=== PATIENT | male | born 1945 | race Caucasian/White ===

== ENCOUNTER → 2016-07-26 | Outpatient (CLI) | payer BC ==
[~2016-07-26] MED LIST: CALC600T9 PO; CETI10TA84 PO; CHOL1000 PO; CIPR1TAB11 PO; DOCU-94 PO; FSMD/70 PO; METH1TAB81 PO; MISCCAP80 PO; MULT-506 PO; PHEN-876 PO; TAMS0.4C38 PO; antihistamine
== END | disposition home or self-care (01) ==
LOC: C.PATHSPEC 17:53
PROVIDERS: ATTEND Urology
DX: C61 Malignant neoplasm of prostate (principal)

== ENCOUNTER → 2016-08-16 | Outpatient (CLI) | payer BC ==
--- NOTE | 2016-08-16 14:22 | DIAGNOSTIC IMAGING REPORT ---
BONE SCAN WHOLE BODY CLINICAL HISTORY: Prostate cancer. COMPARISON STUDY: Chest and rib radiographs June 13, 2006. TECHNIQUE: 26.7 mCi of technetium 99m MDP was injected IV at 11:00 AM on August 16, 2016. 3 hours following injection, whole body imaging was performed in the anterior and posterior projections. FINDINGS: Expected soft tissue and renal activity is present. 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 Uptake within the shoulders is degenerative. Mild uptake within several right sided ribs is likely post traumatic when correlating with prior rib radiographs. No suspicious radiotracer uptake is identified. Mild uptake within the spine is likely degenerative. Mild asymmetric radiotracer uptake along the left sacroiliac joint is noted. IMPRESSION: 1. No convincing evidence for skeletal metastatic disease. 2. Mild focal uptake with right-sided ribs which is likely post traumatic. 3. Moderate asymmetric radiotracer uptake along the left sacroiliac joint. While indeterminate, a neoplastic etiology is considered unlikely. Electronically signed by: Moses Martinez M.D. 08/16/2016 2:21 PM Dictated Date/Time: 08/16/2016 2:17 PM
== END | disposition home or self-care (01) ==
LOC: C.NUCL 10:41
PROVIDERS: ATTEND Urology
DX: C61 Malignant neoplasm of prostate (principal)

== ENCOUNTER → 2016-10-19 | Day surgery (SDC) | payer BC ==
[2016-10-06 09:29] VITALS: BMI 23.0
--- NOTE | 2016-10-06 09:58 | PAT Medication Instructions ---
Service Date Oct 06, 2016. Current Home Medication List Alendronate/Cholecalciferol (Fosamax+D 70MG/2800 Iu), 1 TABLET PO WK Calcium Carbonate-Vitamin D (Calcium + D), 1 TAB PO BID Cetirizine (Zyrtec), 10 MG PO QAM Ciprofloxacin Tab (Cipro), 500 MG PO BID PRN for D Docusate Sodium (Colace), 1 CAP PO BID PRN for PRN Methylprednisolone (Medrol), 4 MG PO UD Multivitamin (Multivitamin), 1 TAB PO QAM Phenazopyridine HCl (Pyridium), 200 MG PO TID PRN for PRN Tamsulosin Hcl (Flomax), 1 CAP PO HS Medication Instructions For Your Scheduled Surgery Alendronate/Cholecalciferol (Fosamax+D 70MG/2800 Iu), 1 TABLET PO WK (continue as usual on Sundays) Ciprofloxacin Tab (Cipro), 500 MG PO BID (per surgeon instructions) Methylprednisolone (Medrol), 4 MG PO UD (per surgeon instructions) - Hold the following medications the morning of surgery: Multivitamin (Multivitamin), 1 TAB PO QAM Phenazopyridine HCl (Pyridium), 200 MG PO TID PRN for PRN Docusate Sodium (Colace), 1 CAP PO BID PRN for PRN Cetirizine (Zyrtec), 10 MG PO QAM Calcium Carbonate-Vitamin D (Calcium + D), 1 TAB PO BID - Take the following medications as scheduled the night before surgery: Tamsulosin Hcl (Flomax), 1 CAP PO HS Phenazopyridine HCl (Pyridium), 200 MG PO TID PRN for PRN Docusate Sodium (Colace), 1 CAP PO BID PRN for PRN Calcium Carbonate-Vitamin D (Calcium + D), 1 TAB PO BID If you have any questions please call us at [phone] or [phone] ( Radha) or [phone]
--- NOTE | 2016-10-06 10:46 | DIAGNOSTIC IMAGING REPORT ---
CHEST PREADMISSION(PA/LAT) CLINICAL HISTORY: Preoperative evaluation. Prostate cancer. COMPARISON STUDY: Chest radiograph June 13, 2016. FINDINGS: There are old right rib fractures. Lung volumes are normal. There is no pneumothorax or pleural effusion. There is no consolidation to suggest pneumonia. Cardiomediastinal silhouette is normal. IMPRESSION: No acute cardiopulmonary findings. Electronically signed by: Moses Martinez M.D. 10/06/2016 10:45 AM Dictated Date/Time: 10/06/2016 10:44 AM
[2016-10-06 11:06] LABS: BASO % 0.7 %; BASO ABS # 0.04 K/uL (0-0.2); COMPLETE YES; HEMATOCRIT 45.7 % (42-52); IG% 0.3 %; LYMPH % 29.2 %; MEAN CELL VOLUME 89.8 fL (80-100); MEAN CORPUSCULAR HEMOGLOBIN 31.8 pg (25-34); MEAN CORPUSCULAR HGB CONC 35.4 g/dl (32-36); MEAN PLATELET VOLUME 9.3 fL (7.4-10.4); MONO % 8.2 %; NEUT % 55.6 %; PLATELET COUNT 236 K/uL (130-400); RED BLOOD COUNT 5.09 M/uL (4.7-6.1); WHITE BLOOD COUNT 5.82 K/uL (4.8-10.8)
[2016-10-06 11:13] LABS: BUN/CREATININE RATIO 9.2 (10-20); CALCIUM 9.1 mg/dl (8.5-10.1); CREATININE 0.71 mg/dl (0.60-1.40); POTASSIUM 4.7 mmol/L (3.5-5.1)
[2016-10-06 11:19] LABS: URINE APPEARANCE CLEAR (CLEAR); URINE BILIRUBIN NEG (NEG); URINE COLOR YELLOW; URINE NITRITE NEG (NEG); URINE SPECIFIC GRAVITY 1.007 (1.000-1.030); UROBILINOGEN NEG (NEG)
[2016-10-06 11:29] LABS: MANUAL MICROSCOPIC REQUIRED? NO; REVIEW REQ? NO
[~2016-10-19] VITALS: Ht 170.2 cm; Wt 66.6 kg
[~2016-10-19] MED LIST changes: +ATROPINE SULFATE 0.1 MG/ML 5ML SYR IV PRN; +BACITRACIN OINT 15 GM TUBE ONE; +CIPROFLOXACIN / D5W 400 MG IV SCH; +CONRAY 60% 50 ML VIAL ONE; +DEXAMETHASONE SOD INJ 4 MG/ML VIAL ONE; +EpHEDrine SULFATE 50MG/5ML SYR ONE; +EpHEDrine SULFATE INJ 50 MG/ML AMP IV PRN; +FENTANYL CITRATE INJ 50 MCG/1 ML 2 ML VIAL IV PRN; +FENTANYL CITRATE INJ 50 MCG/1 ML 2 ML VIAL ONE; +GENTAMICIN INJ 120 MG in DEXTROSE 5% 100ML 100 ML IV SCH; +GLYCOPYRROLATE INJ 0.2 MG/ML VIAL ONE; +LACTATED RINGER'S 1000ML 1,000 ML IV SCH; +LIDOCAINE HCL 2% 2 ML VIAL (20MG/ML) ONE; +MIDAZOLAM HCL 1 MG/ML 2ML VIAL ONE; +NEOMYC/POLYMYX/BACITR/HC OP OI 3.5 GM TUBE ONE; +NEOMYCIN/POLYMYX/BACITR OINT 15 GM TUBE ONE; +ONDANSETRON INJ 2 MG/ML 2 ML VIAL IV PRN; +ONDANSETRON INJ 2 MG/ML 2 ML VIAL ONE; +OXYCODONE/ACETAMINOPHEN 5-325 TAB PO PRN; +PHENAZOPYRIDINE HCL 100 MG TAB PO PRN; +PHENYLEPHRINE 100MCG/ML 5ML SYR ONE; +PHENYLEPHRINE HCL INJ 10 MG/ML VIAL ONE; +PROMETHAZINE HCL INJ 6.25 MG in SODIUM CHLORIDE 0.9% 50ML 50 ML IV PRN; +PROPOFOL IV EMULSION 10 MG/ML 20 ML VIAL IV ONE; -antihistamine
[2016-10-19 05:44] VITALS: BP 155/74; PULSE 112; TEMP 36.8; O2SAT 97; Ht 170.2 cm; Wt 66.6 kg
--- NOTE | 2016-10-19 07:14 | History & Physical Bridge Note ---
H&P Re-Evaluation Bridge Note: I have examined the patient, reviewed the History & Physical and in the interval since the performance of the History & Physical I have noted the following changes of clinical significance: No changes noted
--- NOTE | 2016-10-19 10:28 | Discharge Instructions ---
Discharge Instructions Date of Service Oct 19, 2016. Admission Reason for Admission: Prostate Cancer Discharge Discharge Diagnosis / Problem: Prostate cancer s/p brachyRx and SpaceOAR Discharge Goals Goal(s): Improve disease control, Therapeutic intervention Activity Recommendations Activity Limitations: per Instructions/Follow-up section Lifting Limitations: no more than 25 pounds, gradually increase as tolerated ( over 1 week) Exercise/Sports Limitations: rest today, gradually increase as tolerated (over 1 week) May Resume Sexual Activity: after follow-up appointment Shower/Bathe: tomorrow Driving or Machine Use: resume 1 day after discharge . Discharge Diet Recommended Diet: Regular Diet (good fluid intake) Procedures Procedures Performed: BrachyRx of prostate and SpaceOAR Pending Studies Studies pending at discharge: no Medical Emergencies . Who to Call and When: Medical Emergencies: If at any time you feel your situation is an emergency, please call 911 immediately. . Non-Emergent Contact Non-Emergency issues call your: Urologist Call Non-Emergent contact if: you have a fever, temperature is above 101, your pain is not controlled, your pain is worsening, your pain is unusual for you, your pain is concerning you, wound has increased drainage, wound has increased redness, wound has increased pain, you have any medication questions . . "Provider Documentation" section prepared by Xavier Salinas. VTE Core Measure Inpt VTE Proph given/why not?: SCD's
--- NOTE | 2016-10-19 10:30 | [facility] Post Operative Brief Note ---
Immediate Operative Summary Operative Date Oct 19, 2016. Pre-Operative Diagnosis Prostate cancer Post-Operative Diagnosis Same as preop. Procedure(s) Performed BrachyRx of prostate and SpaceOAR Surgeon Dr. Xavier aSlinas, Dr. Chau Lopez Meter Installer Surgeon(s) Claude Allison Estimated Blood Loss 10 ml Findings 28 cc prostate, 49 seeds placed via 18 needles Specimens None. Drains 18 fr cornejo, 10 cc H2O Anesthesia GALMA Complication(s) None Disposition Recovery Room / PACU
--- NOTE | 2016-10-19 10:32 | DIAGNOSTIC IMAGING REPORT ---
INTRAOPERATIVE RADIOGRAPHS CLINICAL HISTORY: Brachytherapy of the prostate gland. Fluoroscopy time: 7 seconds. FINDINGS: 2 spot fluoroscopic views of the pelvis from a prostatic brachytherapy procedure are presented. A Mar catheter is in place and the bladder is filled with contrast. Numerous brachytherapy seeds project over the prostate gland. IMPRESSION: Intraoperative images from brachytherapy of the prostate gland as above. Electronically signed by: Hero Peterson M.D. 10/19/2016 10:30 AM Dictated Date/Time: 10/19/2016 10:29 AM
--- NOTE | 2016-10-19 10:59 | OPERATIVE REPORT ---
DATE OF OPERATION: 10/19/2016 PREOPERATIVE DIAGNOSIS: [place] 3+4 prostate cancer. POSTOPERATIVE DIAGNOSIS: Same. PROCEDURE: Brachytherapy of the prostate with volumetric analysis and injection of perirectal SpaceOAR. SURGEON: Dr. Xavier Salinas and Dr. Chau Lopez. SIGN INSTALLER: Keon Allison. ANESTHESIA: General anesthesia with laryngeal mask. COMPLICATIONS: None. ESTIMATED BLOOD LOSS: Minimal. DRAINS LEFT IN PLACE: Include an 18 Persian Mar catheter to gravity drainage with 10 mL of sterile water in the balloon. SPECIMENS SENT TO PATHOLOGY: None. ESTIMATED BLOOD LOSS: 10 mL. FINDINGS: 28 mL gland with 49 seeds implanted via 18 needles, good location of SpaceOAR noted on intraoperative ultrasound and good seed location on ultrasound and fluoro. BRIEF HISTORY: Mr. Chavez is a pleasant 71-year-old male who has undergone an office biopsy of his prostate demonstrating adenocarcinoma, [place] 3+4. After discussion of risks and benefits of various forms of intervention, he has decided upon brachytherapy of the prostate with external beam boost to manage his disease. No androgen deprivation has been provided to the patient. Please see H\T\P for further details. He is being brought into the operating room today for surgery as noted. Bone scan has been negative. Preoperative PSA is 5.27, clinical stage T1c. OPERATION AND FINDINGS: PROCEDURE: The patient was properly identified and brought into the operative suite. After identification and appropriate consent on the chart, general anesthesia with laryngeal mask was initiated and the patient was prepped and draped in standard fashion for this procedure. time motion analyst-out procedure was followed. Transrectal ultrasound probe was placed after placement of a Mar catheter with contrast in the bladder and aerated gel within the catheter itself. Prostate was imaged and captured to allow for radiation oncology planning. Peripheral seeds were placed 13 in number and after appropriate calculations peripheral seeds were implanted. Five internal needles were required and placed under hematology/oncology guidance with excellent needle and seed placement throughout the case. A Mar catheter required changing at the end of the procedure due to bursting of the balloon with one of the needle passes. Seeds were visualized entering the prostate under direct visualization on ultrasound. After completion of implantation excellent seed position was appreciated on fluoroscopic imaging. The SpaceOAR gel was injected after hydrodissection of the plane between the prostate and the rectum with a good spread of gel in the plane between the two increasing the distance between the radioactive seed implant and the prostate gland and the rectum. The patient tolerated the procedure well without difficulties or complaints. Ultrasound probe was removed and perineal pressure was held using an orthopedic hammer for distance from the radioactive seeds. Bacitracin ointment was placed and a Mar catheter was placed to gravity drainage. Anesthesia was reversed. The patient was transferred to recovery room in stable condition. FOLLOW-UP CARE: The patient will be discharged to the radiation oncology service for further imaging, trial of void and discharge home. He has his prescriptions for which were provided preoperatively for his perioperative period. Outpatient appointment is confirmed. The patient is instructed to contact our service should he note any fevers, chills, nausea, vomiting or other significant difficulties in the postoperative period. I attest to the content of the Intraoperative Record and any orders documented therein. Any exceptio ns are noted below.
[2016-10-19 11:10] VITALS: BP 123/67; PULSE 86; TEMP 36.5; O2SAT 92
--- NOTE | 2016-10-19 11:15 | Anesthesiology Progress Note ---
Anesthesia Post Op Note Date & Time Oct 19, 2016 at 11:14 Vital Signs Pain Intensity: 1 Vital Signs Past 12 Hours Date Time Temp Pulse Resp B/P Pulse Ox O2 Delivery O2 Flow Rate FiO2 10/19/16 10:55 36.5 89 16 128/75 94 Room Air 10/19/16 10:45 90 16 127/75 97 Room Air 10/19/16 10:35 93 16 133/76 99 Mask 10 10/19/16 10:25 36.6 99 16 115/84 99 Mask 10 10/19/16 05:44 36.8 112 20 155/74 97 Room Air Notes Mental Status: alert / awake / arousable, participated in evaluation Pt Amnestic to Procedure: Yes Nausea / Vomiting: adequately controlled Pain: adequately controlled Airway Patency, RR, SpO2: stable & adequate BP & HR: stable & adequate Hydration State: stable & adequate Anesthetic Complications: no major complications apparent
[2016-10-19 11:40] VITALS: BP 100/53; PULSE 86; TEMP 36.5; O2SAT 95
[2016-10-19 11:55] VITALS: BP 114/64; PULSE 84; TEMP 36.4; O2SAT 94
== END | disposition home or self-care (01) ==
LOC: C.ACU 05:12
PROVIDERS: ATTEND Urology
DX: C61 Malignant neoplasm of prostate (principal); Z79.899 Other long term (current) drug therapy; Z87.891 Personal history of nicotine dependence

== ENCOUNTER → 2016-11-15 | Outpatient (CLI) | payer BC ==
[~2016-11-15] MED LIST changes: -ATROPINE SULFATE 0.1 MG/ML 5ML SYR IV PRN; -BACITRACIN OINT 15 GM TUBE ONE; -CIPROFLOXACIN / D5W 400 MG IV SCH; -CONRAY 60% 50 ML VIAL ONE; -DEXAMETHASONE SOD INJ 4 MG/ML VIAL ONE; -EpHEDrine SULFATE 50MG/5ML SYR ONE; -EpHEDrine SULFATE INJ 50 MG/ML AMP IV PRN; -FENTANYL CITRATE INJ 50 MCG/1 ML 2 ML VIAL IV PRN; -FENTANYL CITRATE INJ 50 MCG/1 ML 2 ML VIAL ONE; -GENTAMICIN INJ 120 MG in DEXTROSE 5% 100ML 100 ML IV SCH; -GLYCOPYRROLATE INJ 0.2 MG/ML VIAL ONE; -LACTATED RINGER'S 1000ML 1,000 ML IV SCH; -LIDOCAINE HCL 2% 2 ML VIAL (20MG/ML) ONE; -MIDAZOLAM HCL 1 MG/ML 2ML VIAL ONE; -NEOMYC/POLYMYX/BACITR/HC OP OI 3.5 GM TUBE ONE; -NEOMYCIN/POLYMYX/BACITR OINT 15 GM TUBE ONE; -ONDANSETRON INJ 2 MG/ML 2 ML VIAL IV PRN; -ONDANSETRON INJ 2 MG/ML 2 ML VIAL ONE; -OXYCODONE/ACETAMINOPHEN 5-325 TAB PO PRN; -PHENAZOPYRIDINE HCL 100 MG TAB PO PRN; -PHENYLEPHRINE 100MCG/ML 5ML SYR ONE; -PHENYLEPHRINE HCL INJ 10 MG/ML VIAL ONE; -PROMETHAZINE HCL INJ 6.25 MG in SODIUM CHLORIDE 0.9% 50ML 50 ML IV PRN; -PROPOFOL IV EMULSION 10 MG/ML 20 ML VIAL IV ONE
[2016-11-15 13:42] VITALS: BP 128/61; PULSE 100; TEMP 36.8; O2SAT 95
--- NOTE | 2016-11-15 15:59 | Radiation Oncology Follow-Up ---
Radiation Oncology Follow-Up Date of Visit November 15, 2016. Reason For Visit One month post seed implant Radiation Completion Date Brachytherapy and spaceoar Diagnosis (1) Prostate cancer Status: Acute Onset Date: 07/26/2016 Location: both lobes of the prostate Histology Subtype: adenocarcinoma Stage: ll (B biopsy stage) Permanent Comment: Rising PSA, pretreatment PSA 5.270 Status post ultrasound-guided biopsies 07/26/2016 Adenocarcinoma with [place]to 3+3 and 3+4 Prostate volume 32.3 Prostate density 0.163 Status post prostate seed implant 10/19/2016. 49 seeds were placed. Status post placement of Space OAR Last Edited By: Urmila Stevenson on November 15, 2016 15:59 History of Present Illness Mr. Chavez is a 71-year-old male without a family history of prostate cancer. He has been followed to his PCP with prostate-specific antigens. On 09/13/2011 prostate-specific antigen was 2.74. On 10/31/2013 the prostate-specific antigen was 3.38. This value was confirmed on 11/10/2013 at 3.2. Patient was seen by Dr. Xavier Salinas on 11/19/2013. His clinical exam at that time showed a mildly enlarged gland with no nodularity. His next prostate-specific antigen was on 03/24/2016. This was following a digital rectal exam revealing no nodularity but an enlarged gland. The prostate-specific antigen at this time had increased to 5.27. With a jump in prostate-specific antigen he was again seen by Dr. Salinas on 06/05/2016. The patient was started on tamsulosin for urinary symptoms. Digital rectal exam again showed no nodularity. His estimated gland size was 45 g. Because of the rising prostate-specific antigen he discussed biopsy options. He had the patient return on July 26 and noted improved urinary symptoms with the tamsulosin. A prostate biopsy was scheduled and performed. On 07/26/2016 and ultrasound-guided biopsies were performed. A total of 14 biopsies were taken. This included 2 biopsies each from the left and right base , left and right mid, left and right apex and one biopsy from the left and right anterior gland. One of 2 biopsies from the left base revealed adenocarcinoma [place] grade of 3+3 involving 50% of the core biopsy with no perineural invasion seen. One of 2 biopsies from the right base were positive for adenocarcinoma Juan Alberto grade 3+4 involving 7% of the core sample with no perineural invasion seen. 2 of 2 biopsies in the left mid gland revealed adenocarcinoma Juan Alber[place] grade 3+4 involving 50% and 10% of the core samples respectively with no perineural invasion seen. One of 2 biopsies from the left apex were positive for adenocarcinoma [place] grade 3+3 involving 7% of the core sample with no perineural invasion seen. 22 biopsies from the right apex were positive for adenocarcinoma [place] grade 3+3 involving 25% and 17% of the core samples respectively with no perineural invasion seen. The 2 biopsies from the right mid gland and the left and right anterior biopsies were benign. 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 Therefore total of 7 of 14 biopsies were positive area and this included 4 from the left gland and 3 from the right gland. For the biopsies were [place] grade 3+3 and 3 of the biopsies were [place] grade 3+4. Case: [id number]-[id number]. Patient underwent a staging bone scan on 08/16/2016. This showed mild focal uptake of the right-sided ribs likely posttraumatic. There was moderate asymmetric radiotracer uptake along the left SI joint felt to be indeterminate with a neoplastic etiology considered unlikely. Therefore there was no convincing evidence of skeletal metastatic disease. The patient return to discuss these findings with Dr. Salinas on 08/09/2016. He arranged to have the patient return to discuss surgery as a treatment option on 09/19/2016 was kind enough to ask us to see the patient to discuss the radiation treatment options. Patient's final decision for treatment was to have a prostate seed implant followed by external beam radiation therapy. No hormone suppression. The prostate seed implant was performed 10/19/2016. 49 seeds were placed. He also had placement of SpaceOAR. Interim History He is been doing well over this past month. He had some mild discomfort following the procedure. This resolved without difficulty. Today he presented with his weekly AUA sheets. His AUA score on 10/27/2016 was 10. The score on 11/04/2016 was 6. The score on 11/11/2016 was 6. His score on 11/15/2016 was 5. He completed and expanded prostate cancer index composite for clinical practice today. He gave a score of 0 of 12 and urinary incontinence symptoms. He gave a score of 0 of 12 and urinary irritation symptoms. He gave a score 0 of 12 and bowel symptoms. He gave a score of 6 of 12 and sexual symptoms. He gave a score 0 12 in hormonal vitality symptoms. His total was 6 of 60. Allergies Coded Allergies: Influenza Vaccine Live (Verified Allergy, Severe, THROAT SWELLING-2014, ) Penicillins (Verified Allergy, Intermediate, HIVES, 10/19/16) Statins (Verified Adverse Reaction, Unknown, aching shoulders, 10/19/16) Home Medications Scheduled Alendronate/Cholecalciferol (Fosamax+D 70MG/2800 Iu), 1 TABLET PO WK Calcium Carbonate-Vitamin D (Calcium + D), 1 TAB PO BID Cetirizine (Zyrtec), 10 MG PO QAM Multivitamin (Multivitamin), 1 TAB PO QAM Probiotic Product (Probiotic), 1 CAP PO DAILY Tamsulosin Hcl (Flomax), 1 CAP PO HS Scheduled PRN Docusate Sodium (Colace), 1 CAP PO BID PRN for PRN Review of Systems Gastrointestinal: Symptoms: WNL GI Comments: Takes colace PRN;No fiber supplements Oral: Symptoms: No Problems Respiratory: Symptoms: WNL Urinary: Comments: Can delay urge to void briefly without problem;2 voids/night; Skin: Symptoms: No Problems Physical Exam Vital Signs Date Time Temp Pulse Resp B/P Pulse Ox O2 Delivery O2 Flow Rate FiO2 11/15/16 13:42 36.8 100 12 128/61 95 Fatigue: None General Appearance: no apparent distress Eyes: normal inspection, EOMI ENT: normal ENT inspection, hearing grossly normal Neck: no adenopathy Respiratory/Chest: lungs clear, no respiratory distress, no accessory muscle use Cardiovascular: regular rate, rhythm, no gallop, no murmur Abdomen: non tender, soft Extremities: no pedal edema Neurologic/Psychiatric: no motor/sensory deficits, alert, normal mood/affect Skin: warm/dry Laboratory Studies Test 10/06/16 00:00 10/06/16 10:09 Urine Color YELLOW Urine Appearance CLEAR (CLEAR) Urine pH 8.0 (4.5-7.5) Urine Specific [place] 1.007 (1.000-1.030) Urine Protein NEG (NEG) Urine Glucose (UA) NEG (NEG) Urine Ketones NEG (NEG) Urine Occult Blood NEG (NEG) Urine Nitrite NEG (NEG) Urine Bilirubin NEG (NEG) Urine Urobilinogen NEG (NEG) Urine Leukocyte Esterase NEG (NEG) White Blood Count 5.82 K/uL (4.8-10.8) Red Blood Count 5.09 M/uL (4.7-6.1) Hemoglobin 16.2 g/dL (14.0-18.0) Hematocrit 45.7 % (42-52) Mean Corpuscular Volume 89.8 fL (80-100) Mean Corpuscular Hemoglobin 31.8 pg (25-34) Mean Corpuscular Hemoglobin Concent 35.4 g/dl (32-36) Platelet Count 236 K/uL (130-400) Mean Platelet Volume 9.3 fL (7.4-10.4) Neutrophils (%) (Auto) 55.6 % Lymphocytes (%) (Auto) 29.2 % Monocytes (%) (Auto) 8.2 % Eosinophils (%) (Auto) 6.0 % Basophils (%) (Auto) 0.7 % Neutrophils # (Auto) 3.23 K/uL (1.4-6.5) Lymphocytes # (Auto) 1.70 K/uL (1.2-3.4) Monocytes # (Auto) 0.48 K/uL (0.11-0.59) Eosinophils # (Auto) 0.35 K/uL (0-0.5) Basophils # (Auto) 0.04 K/uL (0-0.2) RDW Standard Deviation 41.6 fL (36.4-46.3) RDW Coefficient of Variation 12.7 % (11.5-14.5) Immature Granulocyte % (Auto) 0.3 % Immature Granulocyte # (Auto) 0.02 K/uL (0.00-0.02) Sodium Level 139 mmol/L (136-145) Potassium Level 4.7 mmol/L (3.5-5.1) Chloride Level 104 mmol/L (98-107) Carbon Dioxide Level 31 mmol/L (21-32) Anion Gap 4.0 mmol/L (3-11) Blood Urea Nitrogen 7 mg/dl (7-18) Creatinine 0.71 mg/dl (0.60-1.40) Est Creatinine Clear Calc Drug Dose 91.8 ml/min Estimated GFR () 111.0 Estimated GFR (Non- 95.7 BUN/Creatinine Ratio 9.2 (10-20) Random Glucose 100 mg/dl (70-99) Calcium Level 9.1 mg/dl (8.5-10.1) Assessment & Plan Plan: Patient is also seen and examined by Dr. Lopez today. His AUA sheets were reviewed. We will now plan to schedule for CT simulation and follow-up MRI. His consent was read and signed for the external beam therapy. All questions were answered. He'll begin treatment in approximately 1-1/2-2 weeks. Total Time In Follow-Up I spent 20 minutes speaking to the patient and performing examination. I spent 15 minutes reviewing information in completing this note. Copy To Xavier Salinas MD, Urology; Lorenzo Cuenca M.D.
== END | disposition home or self-care (01) ==
LOC: C.ONC 13:31
PROVIDERS: ATTEND Physician Assistant Medical
DX: Z08 Encounter for follow-up examination after completed treatment for malignant neoplasm (principal); Z92.3 Personal history of irradiation; Z85.46 Personal history of malignant neoplasm of prostate

== ENCOUNTER → 2016-11-23 | Outpatient (CLI) | payer BC ==
[~2016-11-23] MED LIST changes: -CIPR1TAB11 PO; -METH1TAB81 PO; -PHEN-876 PO
--- NOTE | 2016-11-23 08:17 | DIAGNOSTIC IMAGING REPORT ---
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 COMPARISON: None. FINDINGS: There are no radiopaque foreign bodies identified within the orbits. IMPRESSION: No radiopaque foreign bodies identified within the orbits. Electronically signed by: Ian Powell M.D. 11/23/2016 8:15 AM Dictated Date/Time: 11/23/2016 8:15 AM
--- NOTE | 2016-11-23 09:07 | DIAGNOSTIC IMAGING REPORT ---
PELVIS WITHOUT CONTRAST (MRI) CLINICAL HISTORY: Prostate carcinoma. Spaceoar evaluation. COMPARISON STUDY: No previous studies for comparison. FINDINGS: Imaging was performed in sagittal and axial planes. There is no suspicious areas of marrow replacement. There are no pathologically enlarged pelvic lymph nodes. There is mild bladder trabeculation. There is sigmoid diverticulosis. The prostate measures 43 mm in diameter. Multiple T2 hypointense lesions within the prostate are consistent with implant seeds. A hydrogel prostate/rectal spacer is visualized. On the right, at the mid gland level the prostate rectal separation is 1 cm. Centrally the prostate rectal separation is 12 mm. On the left, the prostate rectal separation is 16 mm. Inferiorly, the minimal prostate rectal separation is 5 mm. IMPRESSION: 1. No evidence of pathologic adenopathy 2. No evidence of marrow replacement 3. A hydrogel prostate rectal spacer is visualized. The minimal prostate rectal separation is 5 mm Electronically signed by: Ian Powell M.D. 11/23/2016 9:05 AM Dictated Date/Time: 11/23/2016 8:56 AM
== END | disposition home or self-care (01) ==
PROVIDERS: ATTEND Physician Assistant Medical
DX: C61 Malignant neoplasm of prostate (principal)

== ENCOUNTER → 2017-02-05 | Outpatient (CLI) | payer BC ==
[2017-02-05 13:00] LABS: BLOOD UREA NITROGEN 5 mg/dl (7-18); BUN/CREATININE RATIO 6.4 (10-20); CHOLESTEROL 244 mg/dl (0-200); CREATININE 0.74 mg/dl (0.60-1.40); TRIGLYCERIDES 73 mg/dl (0-150); VERY LOW DENSITY LIPOPROT CALC 15 mg/dl
[2017-02-05 13:02] LABS: CHOLESTEROL/HDL RATIO 3.1; HDL CHOLESTEROL 78 mg/dl; LDL CHOLESTEROL CALCULATED 151 mg/dl
== END | disposition home or self-care (01) ==
LOC: C.LABBFT 10:43
PROVIDERS: ATTEND Urology
DX: R97.20 Elevated prostate specific antigen [PSA] (principal); E78.5 Hyperlipidemia, unspecified

== ENCOUNTER → 2017-02-14 | Outpatient (CLI) | payer BC ==
[2017-02-14 14:51] VITALS: BP 128/63; PULSE 97; TEMP 37.2; O2SAT 94
--- NOTE | 2017-02-14 16:19 | Radiation Oncology Follow-Up ---
Radiation Oncology Follow-Up Date of Visit Feb 14, 2017. Reason For Visit One-month follow-up Radiation Completion Date 10/19/16 prostate seed implant 01/16/17 IMRT IGRT Diagnosis (1) Prostate cancer Status: Resolved Onset Date: 07/26/2016 Location: both lobes of the prostate Histology Subtype: adenocarcinoma Stage: ll Permanent Comment: Rising PSA, pretreatment PSA 5.270 Status post ultrasound-guided biopsies 07/26/2016 Adenocarcinoma with Juan Alberto 3+3 and 3+4 Prostate volume 32.3 Prostate density 0.163 Status post prostate seed implant 10/19/2016. 49 seeds were placed. Status post placement of Space OAR Status post completion of IMRT/IGRT 01/16/2017 he received 5040 cGy Last Edited By: Urmila Stevenson on Feb 02, 2017 10:02 History of Present Illness Mr. Chavez is a 71-year-old male without a family history of prostate cancer. He has been followed to his PCP with prostate-specific antigens. On 09/13/2011 prostate-specific antigen was 2.74. On 10/31/2013 the prostate-specific antigen was 3.38. This value was confirmed on 11/10/2013 at 3.2. Patient was seen by Dr. Xavier Salinas on 11/19/2013. His clinical exam at that time showed a mildly enlarged gland with no nodularity. His next prostate-specific antigen was on 03/24/2016. This was following a digital rectal exam revealing no nodularity but an enlarged gland. The prostate-specific antigen at this time had increased to 5.27. With a jump in prostate-specific antigen he was again seen by Dr. Salinas on 06/05/2016. The patient was started on tamsulosin for urinary symptoms. Digital rectal exam again showed no nodularity. His estimated gland size was 45 g. Because of the rising prostate-specific antigen he discussed biopsy options. He had the patient return on July 26 and noted improved urinary symptoms with the tamsulosin. A prostate biopsy was scheduled and performed. On 07/26/2016 and ultrasound-guided biopsies were performed. A total of 14 biopsies were taken. This included 2 biopsies each from the left and right base , left and right mid, left and right apex and one biopsy from the left and right anterior gland. One of 2 biopsies from the left base revealed adenocarcinoma Juan Alberto grade of 3+3 involving 50% of the core biopsy with no perineural invasion seen. One of 2 biopsies from the right base were positive for adenocarcinoma Juan Alberto grade 3+4 involving 7% of the core sample with no perineural invasion seen. 2 of 2 biopsies in the left mid gland revealed adenocarcinoma [place] grade 3+4 involving 50% and 10% of the core samples respectively with no perineural invasion seen. One of 2 biopsies from the left apex were positive for adenocarcinoma Juan Alberto grade 3+3 involving 7% of the core sample with no perineural invasion seen. 22 biopsies from the right apex were positive for adenocarcinoma Juan Alberto grade 3+3 involving 25% and 17% of the core samples respectively with no perineural invasion seen. The 2 biopsies from the right mid gland and the left and right anterior biopsies were benign. 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 Therefore total of 7 of 14 biopsies were positive area and this included 4 from the left gland and 3 from the right gland. For the biopsies were Juan Alberto grade 3+3 and 3 of the biopsies were Juan Alberto grade 3+4. Case: 17- 635-S. Patient underwent a staging bone scan on 08/16/2016. This showed mild focal uptake of the right-sided ribs likely posttraumatic. There was moderate asymmetric radiotracer uptake along the left SI joint felt to be indeterminate with a neoplastic etiology considered unlikely. Therefore there was no convincing evidence of skeletal metastatic disease. The patient return to discuss these findings with Dr. Salinas on 08/09/2016. He arranged to have the patient return to discuss surgery as a treatment option on 09/19/2016 was kind enough to ask us to see the patient to discuss the radiation treatment options. Patient's final decision for treatment was to have a prostate seed implant followed by external beam radiation therapy. No hormone suppression. The prostate seed implant was performed 10/19/2016. 49 seeds were placed. He also had placement of SpaceOAR. He then completed external beam therapy with IMRT/IGRT. This was completed on 01/16/2017. He received 5040 cGy. Interim History He's been doing well over the past month. While on treatment his tamsulosin was increased to twice a day. Following the completion of therapy he was able to decrease the dose to one pill per day. He saw Dr. Salinas in follow-up and was doing well and it was recommended to then decrease the Flomax to every other day. He is continued at this dose. He did try going every 3 days but did have difficulty with urination. For now he is continuing with an every other day dosage. His AUA score was 3. He completed and expanded prostate cancer index composite for clinical practice. He gave a score of 0 of 12 urinary incontinence symptoms. He gave a score of 0 of 12 and urinary irritation symptoms. He gave a score of 0 of 12 and bowel symptoms. He gave a score of 6 of 12 and sexual symptoms. He gave a score of 0 of 12 and hormonal vitality symptoms. His total was 6 of 60. He had a PSA 02/05/2017. This was 4.400. A prior PSA before treatment was 5.270. He did not require hormonal suppression. Allergies Coded Allergies: Influenza Vaccine Live (Verified Allergy, Severe, THROAT SWELLING-2013, ) Penicillins (Verified Allergy, Intermediate, HIVES, 10/19/16) Statins (Verified Adverse Reaction, Unknown, aching shoulders, 10/19/16) Home Medications Scheduled Alendronate/Cholecalciferol (Fosamax+D 70MG/2800 Iu), 1 TABLET PO WK Calcium Carbonate-Vitamin D (Calcium + D), 1 TAB PO BID Cetirizine (Zyrtec), 10 MG PO QAM Cholecalciferol (Vitamin D3), 1 TAB PO DAILY Multivitamin (Multivitamin), 1 TAB PO QAM Probiotic Product (Probiotic), 1 CAP PO DAILY Tamsulosin Hcl (Flomax), 1 CAP PO every other day Review of Systems Gastrointestinal: Symptoms: WNL Oral: Symptoms: No Problems Respiratory: Symptoms: WNL Urinary: Symptoms: Nocturia Comments: nocturiax2 Skin: Symptoms: No Problems Physical Exam Vital Signs Date Time Temp Pulse Resp B/P (MAP) Pulse Ox O2 Delivery O2 Flow Rate FiO2 02/14/17 14:51 37.2 97 16 128/63 94 Fatigue: None General Appearance: no apparent distress Eyes: normal inspection, EOMI ENT: normal ENT inspection, hearing grossly normal Neck: no adenopathy, thyroid normal Respiratory/Chest: lungs clear, no respiratory distress, no accessory muscle use Cardiovascular: regular rate, rhythm, no gallop, no murmur Abdomen: non tender, soft, no organomegaly Extremities: no pedal edema Neurologic/Psychiatric: no motor/sensory deficits, alert, normal mood/affect Skin: warm/dry Laboratory Studies Test 02/05/17 10:49 Blood Urea Nitrogen 5 mg/dl (7-18) Creatinine 0.74 mg/dl (0.60-1.40) Estimated GFR () 109.1 Estimated GFR (Non- 94.1 BUN/Creatinine Ratio 6.4 (10-20) Triglycerides Level 73 mg/dl (0-150) Cholesterol Level 244 mg/dl (0-200) HDL Cholesterol 78 mg/dl LDL Cholesterol, Calculated 151 mg/dl VLDL Cholesterol, Calculated 15 mg/dl Cholesterol/HDL Ratio 3.1 Prostate Specific Antigen 4.400 ng/ml (0.000-4.000) Assessment & Plan Plan: Continue regular follow-up with Dr. Salinas. He'll be seeing him in 3 months. He is going to steadily wean off of the Flomax. He'll have a PSA prior to his next visit with Dr. Salinas. Today we reviewed a cancer survivorship care plan. We asked him to return to our office in 6 months. He may call if he has any questions or concerns in the interim. Total Time In Follow-Up I spent 20 minutes speaking to the patient performing examination. I spent 15 minutes reviewing information completing this note. Copy To Xavier Salinas MD, Urology; Lorenzo Cuenca M.D.
== END | disposition home or self-care (01) ==
LOC: C.ONC 14:36
PROVIDERS: ATTEND Physician Assistant Medical
DX: C61 Malignant neoplasm of prostate (principal)

== ENCOUNTER → 2017-04-20 | Outpatient (CLI) | payer BC ==
[~2017-04-20] MED LIST changes: -DOCU-94 PO
[2017-04-20 09:45] LABS: BLOOD UREA NITROGEN 6 mg/dl (7-18); BUN/CREATININE RATIO 8.2 (10-20); CREATININE 0.69 mg/dl (0.60-1.40)
== END | disposition home or self-care (01) ==
LOC: C.LAB1850 08:33
PROVIDERS: ATTEND Urology
DX: R97.20 Elevated prostate specific antigen [PSA] (principal)

== ENCOUNTER → 2017-08-03 | Outpatient (CLI) | payer BC ==
[2017-08-03 13:01] LABS: ALBUMIN 3.8 gm/dl (3.4-5.0); BLOOD UREA NITROGEN 7 mg/dl (7-18); CALCIUM 8.4 mg/dl (8.5-10.1); CARBON DIOXIDE 28 mmol/L (21-32); GLUCOSE 93 mg/dl (70-99); POTASSIUM 4.2 mmol/L (3.5-5.1); SODIUM 135 mmol/L (136-145)
[2017-08-03 13:07] LABS: ALKALINE PHOSPHATASE 56 U/L (45-117); ALT/SGPT 23 U/L (12-78); AST/SGOT 14 U/L (15-37); CHOLESTEROL 193 mg/dl (0-200); LDL CHOLESTEROL CALCULATED 115 mg/dl; TOTAL PROTEIN 7.3 gm/dl (6.4-8.2)
== END | disposition home or self-care (01) ==
LOC: C.LABBFT 09:30
PROVIDERS: ATTEND Internal Medicine
DX: E78.5 Hyperlipidemia, unspecified (principal); C61 Malignant neoplasm of prostate

== ENCOUNTER → 2017-08-21 | Outpatient (CLI) | payer BC ==
[~2017-08-21] MED LIST changes: +EZET10TA63 PO
[2017-08-21 14:12] VITALS: BP 144/71; PULSE 106; TEMP 37; O2SAT 93
--- NOTE | 2017-08-21 16:05 | Radiation Oncology Follow-Up ---
Radiation Oncology Follow-Up Date of Visit Aug 21, 2017. Reason For Visit 6 month follow-up Radiation Completion Date 10/19/16 - Seed Implant, 01/16/17 - IMRT Diagnosis (1) Prostate cancer Status: Resolved Onset Date: 07/26/2016 Location: both lobes of the prostate Histology Subtype: adenocarcinoma Stage: ll Permanent Comment: Rising PSA, pretreatment PSA 5.270 Status post ultrasound-guided biopsies 07/26/2016 Adenocarcinoma with Juan Alberto 3+3 and 3+4 Prostate volume 32.3 Prostate density 0.163 Status post prostate seed implant 10/19/2016. 49 seeds were placed. Status post placement of Space OAR Declined hormone suppression. Status post completion of IMRT/IGRT 01/16/2017 he received 5040 cGy Last Edited By: Urmila Stevenson on Aug 21, 2017 15:55 History of Present Illness Mr. Chavez is without a family history of prostate cancer. He has been followed to his PCP with prostate-specific antigens. On 09/13/2011 prostate- specific antigen was 2.74. On 10/31/2013 the prostate-specific antigen was 3.38. This value was confirmed on 11/10/2013 at 3.2. Patient was seen by Dr. Xavier Salinas on 11/19/2013. His clinical exam at that time showed a mildly enlarged gland with no nodularity. His next prostate-specific antigen was on . This was following a digital rectal exam revealing no nodularity but an enlarged gland. The prostate-specific antigen at this time had increased to 5.27. With a jump in prostate-specific antigen he was again seen by Dr. Salinas on 06/05/2016. The patient was started on tamsulosin for urinary symptoms. Digital rectal exam again showed no nodularity. His estimated gland size was 45 g. Because of the rising prostate-specific antigen he discussed biopsy options. He had the patient return on July 26 and noted improved urinary symptoms with the tamsulosin. A prostate biopsy was scheduled and performed. On 07/26/2016 and ultrasound-guided biopsies were performed. A total of 14 biopsies were taken. This included 2 biopsies each from the left and right base , left and right mid, left and right apex and one biopsy from the left and right anterior gland. One of 2 biopsies from the left base revealed adenocarcinoma [place] grade of 3+3 involving 50% of the core biopsy with no perineural invasion seen. One of 2 biopsies from the right base were positive for adenocarcinoma Juan Alberto grade 3+4 involving 7% of the core sample with no perineural invasion seen. 2 of 2 biopsies in the left mid gland revealed adenocarcinoma [place] grade 3+4 involving 50% and 10% of the core samples respectively with no perineural invasion seen. One of 2 biopsies from the left apex were positive for adenocarcinoma Juan Alberto grade 3+3 involving 7% of the core sample with no perineural invasion seen. 22 biopsies from the right apex were positive for adenocarcinoma Danese grade 3+3 involving 25% and 17% of the core samples respectively with no perineural invasion seen. The 2 biopsies from the right mid gland and the left and right anterior biopsies were benign. 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 Therefore total of 7 of 14 biopsies were positive area and this included 4 from the left gland and 3 from the right gland. For the biopsies were Danese grade 3+3 and 3 of the biopsies were Danese grade 3+4. Case: 17- 635-S. Patient underwent a staging bone scan on 08/16/2016. This showed mild focal uptake of the right-sided ribs likely posttraumatic. There was moderate asymmetric radiotracer uptake along the left SI joint felt to be indeterminate with a neoplastic etiology considered unlikely. Therefore there was no convincing evidence of skeletal metastatic disease. The patient return to discuss these findings with Dr. Salinas on 08/09/2016. He arranged to have the patient return to discuss surgery as a treatment option on 09/19/2016 was kind enough to ask us to see the patient to discuss the radiation treatment options. Patient's final decision for treatment was to have a prostate seed implant followed by external beam radiation therapy. No hormone suppression. The prostate seed implant was performed 10/19/2016. 49 seeds were placed. He also had placement of SpaceOAR. He then completed external beam therapy with IMRT/IGRT. This was completed on 01/16/2017. He received 5040 cGy. Interim History He's been doing well over the past 6 months. He denies difficulty with urination. He gave an AUA score of 1. He completed and expanded prostate cancer index composite for clinical practice and gave a score of 0 of 12 and urinary incontinence symptoms. He gave a score 1 of 12 and urinary irritation symptoms. He gave a score of 0 of 12 in bowel symptoms. He gave a score of 7 of 12 in sexual symptoms. He gave a score of 0 of 12 and hormonal vitality symptoms. His total with 8 of 60. He has had recheck PSAs. PSA 04/20/2017 was 2.780. He had a PSA 08/03/2017 and that was 2.500. He continues on tamsulosin. We had previously discussed stopping the medication. He did try to wean off the medication but had to many urinary side effects. He then resumed the medication and now is doing well in regards to his urinary status. Allergies Coded Allergies: Influenza Vaccine Live (Verified Allergy, Severe, THROAT SWELLING-2013, ) Penicillins (Verified Allergy, Intermediate, HIVES, 10/19/16) Statins (Verified Adverse Reaction, Unknown, aching shoulders, 10/19/16) Home Medications Scheduled Alendronate/Cholecalciferol (Fosamax+D 70MG/2800 Iu), 1 TABLET PO WK Calcium Carbonate-Vitamin D (Calcium + D), 1 TAB PO BID Cetirizine (Zyrtec), 10 MG PO QAM Cholecalciferol (Vitamin D3), 1 TAB PO DAILY Ezetimibe (Zetia), 10 MG PO DAILY Multivitamin (Multivitamin), 1 TAB PO QAM Probiotic Product (Probiotic), 1 CAP PO DAILY Tamsulosin Hcl (Flomax), 1 CAP PO every other day Review of Systems Gastrointestinal: Symptoms: WNL Oral: Symptoms: No Problems Respiratory: Symptoms: WNL Other Respiratory: ADAN at times Urinary: Symptoms: WNL, Nocturia Comments: Nocturia x 1, see AUA & EPIC Skin: Symptoms: No Problems Physical Exam Vital Signs Date Time Temp Pulse Resp B/P (MAP) Pulse Ox O2 Delivery O2 Flow Rate FiO2 08/21/17 14:12 37.0 106 16 144/71 93 Fatigue: None General Appearance: no apparent distress Eyes: normal inspection, EOMI ENT: normal ENT inspection, hearing grossly normal Respiratory/Chest: lungs clear, no respiratory distress, no accessory muscle use Cardiovascular: regular rate, rhythm, no gallop, no murmur Abdomen: non tender, soft, no organomegaly Anal / Rectum: Rectal examination reveals normal stricter tone. No rectal masses no rectal bleeding. Prostate without nodules. Extremities: no pedal edema Neurologic/Psychiatric: no motor/sensory deficits, alert, normal mood/affect Pain Management Patient Reports Pain: No Initial Pain Intensity: 0.0 Pain Management Plan He denied pain therefore requires no pain management. Laboratory Laboratory Results: were reviewed, and pertinent findings noted below Laboratory Comments: He had a PSA 08/03/2017 and that was 2.500. Pathology Pathology Results: not applicable Imaging Imaging Studies: not applicable Assessment & Plan Plan: Continue regular follow-up with urology and his primary care physician. He continues on tamsulosin. An order was given for a PSA prior to his next visit with our office. He will be seeing Dr. Salinas and having a PSA in 6 months. He may call our office if he has a questions or concerns in the interim. Total Time In Follow-Up I spent 20 minutes speaking to the patient and performing examination. I spent 15 minutes reviewing information in completing this note. [place] Copy To Xavier Salinas MD, Urology; Lorenzo Cuenca M.D.
== END | disposition home or self-care (01) ==
LOC: C.ONC 13:58
PROVIDERS: ATTEND Physician Assistant Medical
DX: Z08 Encounter for follow-up examination after completed treatment for malignant neoplasm (principal); Z92.3 Personal history of irradiation; Z85.46 Personal history of malignant neoplasm of prostate